=== PATIENT | female | born 1940 | race Two or more races ===

== ENCOUNTER → 2018-01-31 | Outpatient (CLI) | payer OTHER ==
[~2018-01-31] MED LIST: ASA81 MG PO; FOLIC ACID1 MG PO; JAKAFI20 MG PO; KIONEX; METROPOLOL; NABUMETONE500 MG PO; OSTERA TABLET1 EACH PO; PERCOCET 5/3251 TAB PO; ZOCOR20 MG PO; ZYLOPRIM100 M1 PO; [UNRECOGNIZED DRUG - OTHER]; [UNRECOGNIZED DRUG - OTHER]
== END | disposition home or self-care (01) ==
LOC: LAB 06:42
DX: I11.9 Hypertensive heart disease without heart failure (principal)

== ENCOUNTER → 2018-12-20 | Outpatient (CLI) | payer OTHER | END | disposition home or self-care (01) | LOC: NUCLEAR 07:00 | DX: I20.9 Angina pectoris, unspecified (principal) | CPT/HCPCS: 78452; 93017; A9500; J0153 ==

== ENCOUNTER 2019-02-15 09:51 | Outpatient (CLI) | payer OTHER | END 2019-02-15 10:02 | disposition home or self-care (01) | LOC: MRI 09:51 | DX: I67.89 Other cerebrovascular disease (principal); I67.81 Acute cerebrovascular insufficiency | CPT/HCPCS: 70551 ==

== ENCOUNTER 2019-12-27 17:49 | Inpatient (IN) | payer OTHER ==
[~2019-12-27] VITALS: Ht 157.5 cm; Wt 77.0 kg
[~2019-12-27 17:49] MED LIST changes: -KIONEX
[2019-12-27] MEDS ORDERED: ATORVASTATIN CA20 MG (17:59)
[2019-12-27] MEDS ORDERED: HYDREA500 M1 (18:01)
[2019-12-27] MEDS ORDERED: DOXAZOSIN MESYLA2 MG (18:02)
[2020-01-01] MEDS ORDERED: TOPROL XL50 MG PO (14:03)
[2020-01-01] MEDS ORDERED: SODIUM POLYSTY454 GM (14:04)
[2020-01-01] MEDS ORDERED: KIONEX (14:05)
[2020-01-12] MEDS ORDERED: NORVASC2.5 M1 PO (16:15)
[2020-01-12] MEDS ORDERED: ATORVASTATIN CA20 MG PO (16:16)
[2020-01-12] MEDS ORDERED: DOXAZOSIN MESYLA2 MG PO (16:17)
[2020-01-12] MEDS ORDERED: TOPROL XL50 MG PO (16:18)
[2020-01-12] MEDS ORDERED: LEVOTHYROXINE100 MCG PO (16:19)
[2020-01-12] MEDS ORDERED: ZYLOPRIM100 M1 PO (16:19)
[2020-01-12] MEDS ORDERED: PROTEINEX-18 LI30 ML PO (16:20)
== END 2020-01-12 17:38 | disposition home or self-care (01) | DRG 809 ==
LOC: ER 17:49 → SURH 18:47 → SURG 18:47 → SEC-K 20:53 → SURG 21:09 → SURH 12-28 15:26
PROVIDERS: ADMIT Internal Medicine Hematology & Oncology
PROC: 8E0ZXY6 Isolation (ICD-10-PCS; principal; 2019-12-27)
PROC: 4A12X4Z Monitoring of Cardiac Electrical Activity, External Approach (ICD-10-PCS; 2019-12-28)
PROC: 07DR3ZX Extraction of Iliac Bone Marrow, Percutaneous Approach, Diagnostic (ICD-10-PCS; 2020-01-04)
PROC: 3E0F7GC Introduction of Other Therapeutic Substance into Respiratory Tract, Via Natural or Artificial Opening (ICD-10-PCS; 2020-01-04)
DX: D61.818 Other pancytopenia (principal); E46 Unspecified protein-calorie malnutrition; J45.901 Unspecified asthma with (acute) exacerbation; D80.8 Other immunodeficiencies with predominantly antibody defects; I12.9 Hypertensive chronic kidney disease with stage 1 through stage 4 chronic kidney disease, or unspecified chronic kidney disease; N18.3 Chronic kidney disease, stage 3 (moderate); D64.9 Anemia, unspecified; Z53.1 Procedure and treatment not carried out because of patient's decision for reasons of belief and group pressure; D47.3 Essential (hemorrhagic) thrombocythemia; I95.1 Orthostatic hypotension; M17.12 Unilateral primary osteoarthritis, left knee; E03.9 Hypothyroidism, unspecified

== ENCOUNTER 2021-08-16 11:39 | Emergency (ER) | payer OTHER ==
[~2021-08-16] VITALS: Ht 162.6 cm; Wt 86.2 kg
[~2021-08-16 11:39] MED LIST changes: +ATORVASTATIN CA20 MG; +ATORVASTATIN CA20 MG PO; +DOXAZOSIN MESYLA2 MG; +DOXAZOSIN MESYLA2 MG PO; +HYDREA500 M1; +KIONEX; +LEVOTHYROXINE100 MCG PO; +NORVASC2.5 M1 PO; +PROTEINEX-18 LI30 ML PO; +SODIUM POLYSTY454 GM; +TOPROL XL50 MG PO
[2021-08-16] MEDS ORDERED: SYNTHROID88 MCG PO (11:54)
[2021-08-16] MEDS ORDERED: NIFEDIPINE20 MG PO (11:55)
[2021-08-16] MEDS ORDERED: ZANAFLEX4 M1 PO (11:56)
[2021-08-16] MEDS ORDERED: DANAZOL100 MG PO (11:56)
[2021-08-16] MEDS ORDERED: LASIX20 MG PO (11:56)
[2021-08-16] MEDS ORDERED: AZITHROMYCIN250 MG (11:57)
[2021-08-16] MEDS ORDERED: MEDROLPACK PO (11:57)
[2021-08-16] MEDS ORDERED: TUSSIN DM CLEA118 M1 (11:58)
== END 2021-08-16 17:07 | disposition home or self-care (01) ==
LOC: ER 11:39
DX: J45.998 Other asthma (principal); D64.9 Anemia, unspecified; E11.9 Type 2 diabetes mellitus without complications; I10 Essential (primary) hypertension; Z11.52 Encounter for screening for COVID-19

== ENCOUNTER 2021-09-10 16:28 | Emergency (ER) | payer OTHER ==
[~2021-09-10] VITALS: Ht 162.6 cm; Wt 82.1 kg
[~2021-09-10 16:28] MED LIST changes: +AZITHROMYCIN250 MG; +DANAZOL100 MG PO; +LASIX20 MG PO; +MEDROLPACK PO; +NIFEDIPINE20 MG PO; +SYNTHROID88 MCG PO; +TUSSIN DM CLEA118 M1; +ZANAFLEX4 M1 PO
== END 2021-09-10 19:19 | disposition home or self-care (01) ==
LOC: ER 16:28
DX: R06.02 Shortness of breath (principal); Z11.52 Encounter for screening for COVID-19

== ENCOUNTER 2022-09-25 10:48 | Emergency (ER) | payer OTHER ==
[~2022-09-25] VITALS: Ht 162.6 cm; Wt 75.3 kg
== END 2022-09-25 15:18 | disposition home or self-care (01) ==
LOC: ER 10:48
DX: J45.909 Unspecified asthma, uncomplicated (principal); Z88.8 Allergy status to other drugs, medicaments and biological substances; Z20.822 Contact with and (suspected) exposure to COVID-19

== ENCOUNTER 2024-04-30 12:01 | Emergency (ER) | payer OTHER ==
[~2024-04-30] VITALS: Ht 162.6 cm; Wt 66.7 kg
[~2024-04-30 12:01] MED LIST changes: +COZAAR50 MG PO; +DEXAMETHASONE4 MG PO; +FUROSEMIDE20 MG PO; +LEVOTHYROXINE88 MCG PO
[2024-04-30] MEDS ORDERED: LEVALBUTEROL HCL 1.25 MG/3 ML SOLUTION IH STA (13:33)
[2024-04-30] MEDS ORDERED: IPRATROPIUM BROMIDE 0.5 MG/2.5 ML AMPUL.NEB IH STA (13:34)
[2024-04-30] MEDS ORDERED: HYDROCODONE/CHLORPHEN P-STIREX 5 ML ML PO STA (13:34)
[2024-04-30] MEDS ORDERED: BUDESONIDE 0.5 MG/2 ML AMPUL.NEB IH STA (13:34)
[2024-04-30] MEDS ORDERED: METHYLPREDNISOLONE SOD SUCC 125 MG VIAL IV STA (13:35)
[2024-04-30] MEDS ORDERED: MAGNESIUM SULFATE IN WATER 4 GM/100 ML PIGGYBACK IV STA (13:38)
[2024-04-30] MEDS ORDERED: METHYLPREDNISOLONE SOD SUCC 40 MG VIAL ONE (14:28)
[2024-04-30 14:39] LABS: HEMATOCRIT 29.4 % (36.0-45.00); HEMOGLOBIN 9.7 g/dL (12.0-15.00); MEAN CORPUSCULAR HEMOGLOBIN 30.3 pg (27.00-32.0); MEAN CORPUSCULAR HGB CONC 32.9 g/dl (32.0-36.0); PLATELET COUNT 793 K/uL (150-450); RED BLOOD COUNT 3.19 M/uL (4.00-6.00); RED CELL DISTRIBUTION WIDTH 16.9 % (11.5-14.5)
[2024-04-30 14:53] LABS: CALCIUM 8.8 mg/dL (8.5-10.1); CREATININE SERUM 2.24 mg/dL (0.55-1.02); GFR 20.78; POTASSIUM 5.57 mEq/L (3.5-5.1)
[2024-04-30] MEDS ORDERED: MAGNESIUM SULFATE 50% 5,000 MG/10 ML VIAL ONE (15:13)
[2024-04-30] MEDS ORDERED: IPRATROPIUM BROMIDE 0.5 MG/2.5 ML AMPUL.NEB IH ONE (16:07)
[2024-04-30] MEDS ORDERED: LEVALBUTEROL HCL 0.63 MG/3 ML SOLUTION IH ONE (16:07)
[2024-04-30] MEDS ORDERED: BUDESONIDE 0.5 MG/2 ML AMPUL.NEB IH ONE (16:07)
== END 2024-04-30 18:14 | disposition home or self-care (01) ==
LOC: ER 12:01
PROVIDERS: General Practice
DX: J45.998 Other asthma (principal); E11.9 Type 2 diabetes mellitus without complications; Z88.8 Allergy status to other drugs, medicaments and biological substances; E78.00 Pure hypercholesterolemia, unspecified; I10 Essential (primary) hypertension; Z20.822 Contact with and (suspected) exposure to COVID-19; I51.7 Cardiomegaly; J90 Pleural effusion, not elsewhere classified
CPT/HCPCS: 36415; 71045; 94640; 99284; J3475; J3490

== ENCOUNTER 2024-06-01 20:56 | Inpatient (IN) | payer OTHER ==
[~2024-06-01] VITALS: Ht 152.4 cm; Wt 82.6 kg
[2024-06-01] MEDS ORDERED: 0.9 % SODIUM CHLORIDE 1,000 ML IV STA (22:39)
[2024-06-01] MEDS ORDERED: FUROsemide 20 MG/2 ML VIAL IV ONE (22:45)
[2024-06-01] MEDS ORDERED: NITROGLYCERIN IN 5 % DEXTROSE 50 MG/250 ML BOTTLE IV SCH (23:00)
[2024-06-01 23:11] LABS: HEMATOCRIT 29.3 % (36.0-45.00); HEMOGLOBIN 9.6 g/dL (12.0-15.00); MEAN CELL VOLUME 91.1 fL (80.00-100.00); MEAN CORPUSCULAR HGB CONC 32.9 g/dl (32.0-36.0); PLATELET COUNT 366 K/uL (150-450); RED BLOOD COUNT 3.21 M/uL (4.00-6.00); RED CELL DISTRIBUTION WIDTH 16.7 % (11.5-14.5)
[2024-06-01 23:34] LABS: CALCIUM 8.4 mg/dL (8.5-10.1); CREATININE SERUM 2.4 mg/dL (0.55-1.02); GFR 19.19; POTASSIUM 5.73 mEq/L (3.5-5.1)
[2024-06-01 23:35] LABS: INR 1.31; PARTIAL THROMBOPLASTIN TIME 26.4 SECONDS (22.0-34.0)
[2024-06-02] VITALS (20 sets, daily range): BP systolic 150–186; BP diastolic 69–92; O2SAT 98–200
[2024-06-02] MEDS ORDERED: FUROsemide 20 MG/2 ML VIAL IV SCH
[2024-06-02] MEDS ORDERED: ACETAMINOPHEN 500 MG GEL..CAP PO PRN
[2024-06-02] MEDS ORDERED: FAMOTIDINE/PF 20 MG in 0.9 % SODIUM CHLORIDE 8 ML IV PUSH SCH
[2024-06-02 00:37] LABS: ABG PH 7.408 (7.35-7.45); ABG PO2 63.6 mmHg (80-100); ABG pCO2 35.7 mmHg (35-45); Tco2 23.1 mmol/l; allen test SATISFACTORY; puncture site RADIAL LEFT
[2024-06-02 00:38] LABS: o2 21 %
[2024-06-02] MEDS ORDERED: IPRATROPIUM BROMIDE 0.5 MG/2.5 ML AMPUL.NEB IH SCH (01:00)
[2024-06-02 01:15] LABS: URINE APPEARANCE Clear; URINE BILIRRUBIN Negative (NEGATIVE); URINE BLOOD Negative; URINE COLOR Yellow; URINE GLUCOSE Negative (NEGATIVE); URINE KETONE Trace (NEGATIVE); URINE LEUKOCYTE Negative; URINE NITRATE Negative
[2024-06-02 01:18] LABS: URINE BACTERIA 25.1 uL (0.0-1933); URINE CAST 2.13 uL (0.0-1.40); URINE EPITHELIAL CELLS 13.1 uL (0.0-38.8); URINE WBC 2.9 uL (0.0-23.2)
[2024-06-02 01:19] LABS: URINE PROTEIN 100 (NEGATIVE); URINE RBC 1.2 uL (0.0-20.8)
[2024-06-02] MEDS ORDERED: LEVOTHYROXINE SODIUM 88 MCG TABLET PO SCH (06:00)
[2024-06-02 06:56] LABS: CHOL HDL RATIO 1.5 (0-5.0); MAGNESIUM 2.3 mg/dL (1.8-2.4); PHOSPHOROUS 4.7 mg/dL (2.5-4.9)
[2024-06-02] MEDS ORDERED: ENOXAPARIN SODIUM 40 MG/0.4 ML SYRINGE SUBCUTANEO SCH (09:00)
[2024-06-02] MEDS ORDERED: hydrALAZINE HCL 25 MG TABLET PO SCH (09:00)
[2024-06-02] MEDS ORDERED: BUMETANIDE 1 MG TABLET PO SCH (09:00)
[2024-06-02] MEDS ORDERED: METOPROLOL SUCCINATE 50 MG TAB.SR.24H PO SCH (09:00)
[2024-06-02] MEDS ORDERED: ATORVASTATIN CALCIUM 20 MG TABLET PO SCH (09:00)
[2024-06-02] MEDS ORDERED: PIPERACILLIN/TAZOBACTAM SODIUM 2.25 GM VIAL IV SCH (10:21)
[2024-06-02] MEDS ORDERED: SODIUM POLYSTYRENE SULFONATE 15 G/4 TSP TSP PO SCH ×2 (13:00)
[2024-06-02] MEDS ORDERED: EPOETIN ALFA-EPBX 10,000 UNIT/ML VIAL (Retacrit) SUBCUTANEO SCH (17:00)
[2024-06-02] MEDS ORDERED: CEFTRIAXONE SODIUM 2,000 MG VIAL IV SCH (17:00)
[2024-06-02] MEDS ORDERED: hydrALAZINE HCL 25 MG TABLET PO STA (20:12)
[2024-06-02] MEDS ORDERED: NITROGLYCERIN IN 5 % DEXTROSE 250 ML IV SCH (23:00)
[2024-06-03] VITALS (19 sets, daily range): BP systolic 109–173; BP diastolic 60–94; O2SAT 98–100
[2024-06-03] MEDS ORDERED: hydrALAZINE HCL 50 MG TABLET PO SCH
[2024-06-03] MEDS ORDERED: NITROGLYCERIN IN 5 % DEXTROSE 250 ML IV SCH (08:30)
[2024-06-03 08:31] LABS: ALBUMIN 2.8 gm/dL (3.4-5.0); BILIRUBIN TOTAL 0.45 mg/dL (0.3-1.2); CREATININE SERUM 2.21 mg/dL (0.55-1.02); GFR 21.1; GLOBULINA 2.9 G/DL (2.4-3.5); POTASSIUM 4.58 mEq/L (3.5-5.1); TOTAL PROTEIN 5.7 gm/dL (6.4-8.2)
[2024-06-03] MEDS ORDERED: ENOXAPARIN SODIUM 30 MG/0.3 ML SYRINGE SUBCUTANEO SCH (09:00)
[2024-06-03] MEDS ORDERED: METOLAZONE 5 MG TABLET PO SCH (09:00)
[2024-06-03] MEDS ORDERED: VITAMIN B COMPLEX 1 EACH PO SCH (09:00)
[2024-06-03] MEDS ORDERED: BUMETANIDE 1 MG TABLET PO SCH ×2 (09:00)
[2024-06-03] MEDS ORDERED: hydrALAZINE HCL 50 MG,hydrALAZINE HCL 25 MG PO SCH (18:00)
[2024-06-03] MEDS ORDERED: AMLODIPINE BESYLATE 10 MG TABLET PO SCH (21:00)
[2024-06-04] VITALS (14 sets, daily range): BP systolic 111–176; BP diastolic 54–94; O2SAT 91–100
[2024-06-04] MEDS ORDERED: DOCUSATE SODIUM 100MG CAP PO SCH (09:00)
[2024-06-04] MEDS ORDERED: BUMETANIDE 2.5 MG/10 ML VIAL IV SCH (09:00)
[2024-06-04] MEDS ORDERED: BUMETANIDE 1 MG TABLET PO SCH (09:00)
[2024-06-05] VITALS (8 sets, daily range): BP systolic 143–155; BP diastolic 59–70; O2SAT 97–100
[2024-06-05 06:55] LABS: HEMATOCRIT 28.7 % (36.0-45.00); HEMOGLOBIN 9.5 g/dL (12.0-15.00); MEAN CELL VOLUME 90.9 fL (80.00-100.00); MEAN CORPUSCULAR HEMOGLOBIN 30.1 pg (27.00-32.0); MEAN CORPUSCULAR HGB CONC 33.1 g/dl (32.0-36.0); PLATELET COUNT 516 K/uL (150-450); RED BLOOD COUNT 3.16 M/uL (4.00-6.00); RED CELL DISTRIBUTION WIDTH 16.5 % (11.5-14.5)
[2024-06-05 07:20] LABS: ALBUMIN 2.6 gm/dL (3.4-5.0); BILIRUBIN TOTAL 0.27 mg/dL (0.3-1.2); CREATININE SERUM 2.24 mg/dL (0.55-1.02); GFR 20.78; POTASSIUM 4.4 mEq/L (3.5-5.1); TOTAL PROTEIN 5.6 gm/dL (6.4-8.2)
[2024-06-05] MEDS ORDERED: ISOSORBIDE MONONITRATE 30 MG TABLET PO SCH (09:00)
[2024-06-05] MEDS ORDERED: DOXAZOSIN MESYLATE 2 MG TABLET PO SCH (09:00)
[2024-06-05 09:38] LABS: ABG PH 7.456 (7.35-7.45); ABG PO2 94.7 mmHg (80-100); ABG pCO2 37.5 mmHg (35-45); BASE EXCESS 2.1 mmol/l; BICARBONATE 25.9 mmol/l (23-25); SaO2 97.8 %; o2 21 %; puncture site RADIAL RIGHT
[2024-06-05 09:39] LABS: allen test SATISFACTORY
[2024-06-06] VITALS (8 sets, daily range): BP systolic 127–146; BP diastolic 63–65; O2SAT 96–100
[2024-06-06 07:54] LABS: ALBUMIN 2.7 gm/dL (3.4-5.0); CALCIUM 8.4 mg/dL (8.5-10.1); CREATININE SERUM 2.32 mg/dL (0.55-1.02); GFR 19.95; PHOSPHOROUS 4.7 mg/dL (2.5-4.9); POTASSIUM 4.39 mEq/L (3.5-5.1)
[2024-06-06] MEDS ORDERED: hydrALAZINE HCL 50 MG TABLET PO SCH (12:00)
[2024-06-06] MEDS ORDERED: METOLAZONE 5 MG TABLET PO SCH (12:00)
[2024-06-06] MEDS ORDERED: DOXAZOSIN MESYLATE 4 MG TABLET PO SCH (17:00)
[2024-06-06] MEDS ORDERED: BUMETANIDE 2.5 MG/10 ML VIAL IV SCH (21:00)
[2024-06-07] VITALS (7 sets, daily range): BP systolic 121–153; BP diastolic 61–70; O2SAT 98–100
[2024-06-08 01:32] VITALS: BP 129/58; O2SAT 100
[2024-06-08 07:10] LABS: HEMATOCRIT 27.8 % (36.0-45.00); HEMOGLOBIN 9.3 g/dL (12.0-15.00); MEAN CELL VOLUME 90.7 fL (80.00-100.00); MEAN CORPUSCULAR HEMOGLOBIN 30.3 pg (27.00-32.0); MEAN CORPUSCULAR HGB CONC 33.4 g/dl (32.0-36.0); RED BLOOD COUNT 3.06 M/uL (4.00-6.00); RED CELL DISTRIBUTION WIDTH 16.6 % (11.5-14.5)
[2024-06-08 07:14] LABS: ALBUMIN 2.4 gm/dL (3.4-5.0); BILIRUBIN TOTAL 0.24 mg/dL (0.3-1.2); CALCIUM 8.2 mg/dL (8.5-10.1); CREATININE SERUM 2.53 mg/dL (0.55-1.02); GFR 18.05; GLOBULINA 2.6 G/DL (2.4-3.5); POTASSIUM 5.4 mEq/L (3.5-5.1)
[2024-06-08 07:28] LABS: PLATELET COUNT 1074 K/uL (150-450)
[2024-06-08 08:31] VITALS: BP 151/62; O2SAT 98
[2024-06-08] MEDS ORDERED: BUMETANIDE 2.5 MG/10 ML VIAL IV SCH ×2 (09:00→21:00)
[2024-06-08] MEDS ORDERED: HYDROXYUREA 500 MG CAP PO SCH (17:00)
[2024-06-08 17:59] VITALS: BP 122/54; O2SAT 100
[2024-06-09 00:58] VITALS: BP 146/61; O2SAT 96
[2024-06-09 09:05] VITALS: BP 154/75; O2SAT 97
[2024-06-09] MEDS ORDERED: AMINO ACIDS/PROTEIN HYDROLYS 30 ML BLIST.PACK PO SCH (17:00)
[2024-06-09 17:38] VITALS: BP 148/63; O2SAT 97
[2024-06-10 00:37] VITALS: BP 158/68
[2024-06-10 08:27] LABS: HEMATOCRIT 29.1 % (36.0-45.00); HEMOGLOBIN 9.9 g/dL (12.0-15.00); MEAN CELL VOLUME 90.6 fL (80.00-100.00); MEAN CORPUSCULAR HEMOGLOBIN 30.7 pg (27.00-32.0); MEAN CORPUSCULAR HGB CONC 33.9 g/dl (32.0-36.0); RED BLOOD COUNT 3.22 M/uL (4.00-6.00); RED CELL DISTRIBUTION WIDTH 16.3 % (11.5-14.5)
[2024-06-10 08:31] LABS: PLATELET COUNT 1316 K/uL (150-450)
[2024-06-10 08:33] LABS: ALBUMIN 2.6 gm/dL (3.4-5.0); CALCIUM 8.7 mg/dL (8.5-10.1); CREATININE SERUM 2.36 mg/dL (0.55-1.02); GFR 19.56; PHOSPHOROUS 4.1 mg/dL (2.5-4.9); POTASSIUM 5.36 mEq/L (3.5-5.1)
[2024-06-10 08:55] VITALS: BP 149/65; O2SAT 99
[2024-06-11] MEDS ORDERED: BUMETANIDE 2.5 MG/10 ML VIAL IV SCH (09:00)
== END 2024-06-10 14:56 | disposition home or self-care (01) | DRG 292 ==
LOC: ER 20:57 → ICU-2 23:57 → ICU 06-02 19:13 → MEDJ 06-04 10:53
PROVIDERS: Emergency Medicine; General Practice; Internal Medicine; Internal Medicine Nephrology; ADMIT Internal Medicine; ATTEND Internal Medicine
PROC: 4A12X4Z Monitoring of Cardiac Electrical Activity, External Approach (ICD-10-PCS; 2024-06-01)
PROC: B246ZZZ Ultrasonography of Right and Left Heart (ICD-10-PCS; principal; 2024-06-02)
PROC: 3E0F7GC Introduction of Other Therapeutic Substance into Respiratory Tract, Via Natural or Artificial Opening (ICD-10-PCS; 2024-06-02)
PROC: BW21ZZZ Computerized Tomography (CT Scan) of Abdomen and Pelvis (ICD-10-PCS; 2024-06-06)
DX: I50.23 Acute on chronic systolic (congestive) heart failure (principal); D47.1 Chronic myeloproliferative disease; I13.0 Hypertensive heart and chronic kidney disease with heart failure and stage 1 through stage 4 chronic kidney disease, or unspecified chronic kidney disease; N17.9 Acute kidney failure, unspecified; E87.5 Hyperkalemia; E87.70 Fluid overload, unspecified; N18.30 Chronic kidney disease, stage 3 unspecified; D63.1 Anemia in chronic kidney disease; M17.0 Bilateral primary osteoarthritis of knee; E03.9 Hypothyroidism, unspecified; R09.02 Hypoxemia; R60.1 Generalized edema; Z53.1 Procedure and treatment not carried out because of patient's decision for reasons of belief and group pressure

== ENCOUNTER 2024-07-03 19:36 | Inpatient (IN) | payer OTHER ==
[~2024-07-03] VITALS: Ht 162.6 cm; Wt 68.9 kg
--- NOTE | 2024-07-03 20:12 | NUR ---
SE RECIBE PACIENTE ALERTA Y ORIENTADA X3 EN COMPANIA DE FAMILIAR LA CUAL REFIERE QUE EN EL AMOR DE [place] PACIENTE PRESENTO MAREOS Y SE CHUNG MANTENIDO CON DOLOR ABDOMINAL DESDE BONILLA.
[2024-07-03] MEDS ORDERED: FAMOTIDINE/PF 20 MG in 0.9 % SODIUM CHLORIDE 8 ML IV PUSH STA (20:47)
[2024-07-03] MEDS ORDERED: ONDANSETRON HCL 2 MG/ML VIAL IV ONE (21:00)
[2024-07-03] MEDS ORDERED: KETOROLAC TROMETHAMINE 30 MG VIAL IM ONE (21:00)
--- NOTE | 2024-07-03 21:03 | NUR ---
MS MATA ORIENTA PTE SOBRE TX MEDICO EL CUAL REFIERE ENTENDER.SE LE EXTRAEN MUESTRAS BAJO MEDIDAS ASEPTICAS,SE CANALIZA Y SE ADMINISTRA MEDICAMENTO,SE NOTIFICA CT PENDIENTE.
[2024-07-03 21:40] LABS: HEMATOCRIT 32.3 % (36.0-45.00); HEMOGLOBIN 10.5 g/dL (12.0-15.00); MEAN CELL VOLUME 88.2 fL (80.00-100.00); MEAN CORPUSCULAR HEMOGLOBIN 28.7 pg (27.00-32.0); MEAN CORPUSCULAR HGB CONC 32.6 g/dl (32.0-36.0); PLATELET COUNT 324 K/uL (150-450); RED BLOOD COUNT 3.66 M/uL (4.00-6.00)
[2024-07-03 21:59] LABS: ALBUMIN 3.5 gm/dL (3.4-5.0); BILIRUBIN TOTAL 0.34 mg/dL (0.3-1.2); BILIRUBIN,CONJUGATED 0.17 mg/dL (0.0-0.2); BILIRUBIN,UNCONJUGATED 0.17 mg/dL (0.0-0.6); CALCIUM 8.9 mg/dL (8.5-10.1); CREATININE SERUM 3.83 mg/dL (0.55-1.02); GFR 11.19; GLOBULINA 4.6 G/DL (2.4-3.5); POTASSIUM 4.32 mEq/L (3.5-5.1); TOTAL PROTEIN 8.1 gm/dL (6.4-8.2)
[2024-07-04] VITALS (7 sets, daily range): BP systolic 138–177; BP diastolic 73–85; O2SAT 90–98
[2024-07-04] MEDS ORDERED: ACETAMINOPHEN 500 MG GEL..CAP PO PRN (01:15)
[2024-07-04] MEDS ORDERED: 0.9 % SODIUM CHLORIDE 1,000 ML IV SCH (01:15)
[2024-07-04] MEDS ORDERED: MORPHINE SULFATE 2 MG/ML SYRINGE IV STA (04:55)
[2024-07-04] MEDS ORDERED: LEVOTHYROXINE SODIUM 88 MCG TABLET PO SCH (06:00)
[2024-07-04 06:42] LABS: INR 1.26; PARTIAL THROMBOPLASTIN TIME 21.8 SECONDS (22.0-34.0); PROTHROMBIN TIME 13.5 SECONDS (9.0-11.5)
[2024-07-04 07:06] LABS: MAGNESIUM 2.3 mg/dL (1.8-2.4)
[2024-07-04] MEDS ORDERED: FUROsemide 20 MG/2 ML VIAL IV SCH (09:00)
[2024-07-04] MEDS ORDERED: ATORVASTATIN CALCIUM 20 MG TABLET PO SCH (09:00)
[2024-07-04] MEDS ORDERED: METOPROLOL SUCCINATE 50 MG TAB.SR.24H PO SCH (09:00)
[2024-07-04] MEDS ORDERED: FAMOTIDINE/PF 20 MG in 0.9 % SODIUM CHLORIDE 8 ML IV PUSH SCH (09:00)
[2024-07-04] MEDS ORDERED: ENOXAPARIN SODIUM 30 MG/0.3 ML SYRINGE SUBCUTANEO SCH (09:00)
[2024-07-04 09:03] LABS: PH,URINE 6.5 (5.0-8.0); URINE APPEARANCE Clear; URINE BILIRRUBIN Negative (NEGATIVE); URINE BLOOD Negative; URINE COLOR Yellow; URINE GLUCOSE Negative (NEGATIVE); URINE KETONE Negative (NEGATIVE); URINE LEUKOCYTE Negative; URINE NITRATE Negative; URINE PROTEIN Trace (NEGATIVE); URINE UROBILINOGEN 0.2 E.U./dl
[2024-07-04 09:07] LABS: URINE BACTERIA 391.6 uL (0.0-1933); URINE CAST 1.52 uL (0.0-1.40); URINE EPITHELIAL CELLS 9.7 uL (0.0-38.8); URINE RBC 2.4 uL (0.0-20.8); URINE WBC 10.9 uL (0.0-23.2)
[2024-07-04] MEDS ORDERED: hydrALAZINE HCL 20 MG VIAL IV PRN (11:15)
[2024-07-04] MEDS ORDERED: MULTIVIT INFUSN,ADULT 4,VIT K 10 ML VIAL IV NR (12:00)
[2024-07-04] MEDS ORDERED: DOXAZOSIN MESYLATE 2 MG TABLET PO SCH (17:00)
[2024-07-05] VITALS (7 sets, daily range): BP systolic 132–178; BP diastolic 66–85; O2SAT 96–99
[2024-07-05 08:18] LABS: CALCIUM 8.6 mg/dL (8.5-10.1); CREATININE SERUM 3.58 mg/dL (0.55-1.02); GFR 12.09; POTASSIUM 4.58 mEq/L (3.5-5.1)
[2024-07-05] MEDS ORDERED: MULTIVIT INFUSN,ADULT 4,VIT K 10 ML VIAL IV SCH (09:00)
[2024-07-05] MEDS ORDERED: DOXAZOSIN MESYLATE 2 MG TABLET PO SCH (09:00)
[2024-07-05] MEDS ORDERED: FUROsemide 20 MG TABLET PO NR (14:00)
[2024-07-05] MEDS ORDERED: hydrALAZINE HCL 25 MG TABLET PO SCH (17:00)
[2024-07-06] VITALS (8 sets, daily range): BP systolic 90–148; BP diastolic 53–70; O2SAT 88–100
[2024-07-06 07:13] LABS: CALCIUM 8.3 mg/dL (8.5-10.1); CREATININE SERUM 3.63 mg/dL (0.55-1.02); GFR 11.9; PHOSPHOROUS 4.8 mg/dL (2.5-4.9); POTASSIUM 4.72 mEq/L (3.5-5.1)
[2024-07-06] MEDS ORDERED: FUROsemide 20 MG TABLET PO SCH (09:00)
[2024-07-07] VITALS (7 sets, daily range): BP systolic 120–131; BP diastolic 61–72; O2SAT 90–100
[2024-07-07 07:05] LABS: ALBUMIN 2.9 gm/dL (3.4-5.0); CALCIUM 8.4 mg/dL (8.5-10.1); CREATININE SERUM 3.57 mg/dL (0.55-1.02); GFR 12.13; PHOSPHOROUS 4.2 mg/dL (2.5-4.9); POTASSIUM 5.13 mEq/L (3.5-5.1)
[2024-07-08] VITALS (7 sets, daily range): BP systolic 118–153; BP diastolic 68–78; O2SAT 94–100
[2024-07-08] MEDS ORDERED: MULTIVIT INFUSN,ADULT 4,VIT K 10 ML VIAL IV SCH (09:00)
[2024-07-09] VITALS (7 sets, daily range): BP systolic 125–157; BP diastolic 54–78; O2SAT 88–100
[2024-07-09 08:13] LABS: CREATININE SERUM 3.03 mg/dL (0.55-1.02); GFR 14.66; POTASSIUM 5.68 mEq/L (3.5-5.1)
[2024-07-09] MEDS ORDERED: SODIUM POLYSTYRENE SULFONATE 30G/8 TSP PO SCH (12:00)
[2024-07-10 05:32] VITALS: O2SAT 98
[2024-07-10 07:23] LABS: CALCIUM 8.1 mg/dL (8.5-10.1); CREATININE SERUM 2.95 mg/dL (0.55-1.02); GFR 15.12; POTASSIUM 4.99 mEq/L (3.5-5.1)
[2024-07-10 08:00] VITALS: BP 145/76; O2SAT 100
[2024-07-10 15:53] VITALS: BP 161/77; O2SAT 100
[2024-07-10 16:33] VITALS: O2SAT 86
[2024-07-10 20:56] VITALS: O2SAT 97
[2024-07-11 00:39] VITALS: BP 150/70; O2SAT 97
[2024-07-11 08:00] VITALS: BP 160/80; O2SAT 99
[2024-07-11 13:39] VITALS: O2SAT 95
[2024-07-11 15:56] VITALS: O2SAT 98
[2024-07-11 16:00] VITALS: BP 164/77; O2SAT 99
[2024-07-11 22:06] VITALS: O2SAT 97
[2024-07-12 00:46] VITALS: BP 124/72; O2SAT 97
[2024-07-12 01:00] VITALS: O2SAT 97
[2024-07-12 05:00] VITALS: O2SAT 98
[2024-07-12 07:11] LABS: HEMATOCRIT 27.1 % (36.0-45.00); MEAN CELL VOLUME 87.4 fL (80.00-100.00); MEAN CORPUSCULAR HEMOGLOBIN 28.9 pg (27.00-32.0); MEAN CORPUSCULAR HGB CONC 33.1 g/dl (32.0-36.0); PLATELET COUNT 933 K/uL (150-450); RED BLOOD COUNT 3.11 M/uL (4.00-6.00); RED CELL DISTRIBUTION WIDTH 17.6 % (11.5-14.5)
[2024-07-12 07:34] LABS: ALBUMIN 3.2 gm/dL (3.4-5.0); BILIRUBIN TOTAL 0.33 mg/dL (0.3-1.2); CALCIUM 8.2 mg/dL (8.5-10.1); CREATININE SERUM 2.26 mg/dL (0.55-1.02); GFR 20.56; GLOBULINA 3.2 G/DL (2.4-3.5); POTASSIUM 4.5 mEq/L (3.5-5.1); TOTAL PROTEIN 6.4 gm/dL (6.4-8.2)
[2024-07-12 08:00] VITALS: BP 141/84; O2SAT 95
== END 2024-07-12 12:06 | disposition home or self-care (01) | DRG 683 ==
LOC: ER 19:38 → SURG 07-04 01:14 → SEC-K 07-04 01:14 → SURG 07-04 10:05
PROVIDERS: General Practice; Internal Medicine; Internal Medicine Nephrology; ADMIT Internal Medicine; ATTEND Internal Medicine
PROC: B020ZZZ Computerized Tomography (CT Scan) of Brain (ICD-10-PCS; principal; 2024-07-03)
PROC: BT43ZZZ Ultrasonography of Bilateral Kidneys (ICD-10-PCS; 2024-07-04)
PROC: B246ZZZ Ultrasonography of Right and Left Heart (ICD-10-PCS; 2024-07-04)
PROC: B345ZZZ Ultrasonography of Bilateral Common Carotid Arteries (ICD-10-PCS; 2024-07-04)
PROC: B348ZZZ Ultrasonography of Bilateral Internal Carotid Arteries (ICD-10-PCS; 2024-07-04)
PROC: 4A12X4Z Monitoring of Cardiac Electrical Activity, External Approach (ICD-10-PCS; 2024-07-04)
DX: N17.9 Acute kidney failure, unspecified (principal); I12.0 Hypertensive chronic kidney disease with stage 5 chronic kidney disease or end stage renal disease; R55 Syncope and collapse; E86.0 Dehydration; E87.5 Hyperkalemia; N18.6 End stage renal disease; D63.1 Anemia in chronic kidney disease; E11.22 Type 2 diabetes mellitus with diabetic chronic kidney disease; E03.9 Hypothyroidism, unspecified; R60.0 Localized edema

== ENCOUNTER 2024-08-09 18:18 | Emergency (ER) | payer OTHER ==
[~2024-08-09] VITALS: Ht 162.6 cm; Wt 74.8 kg
[2024-08-09 18:47] VITALS: BP 185/81; O2SAT 97
[2024-08-09] MEDS ORDERED: AGRYLIN0.5 M1 PO (18:49)
== END 2024-08-09 19:38 | disposition home or self-care (01) ==
LOC: ER 18:20
DX: K64.4 Residual hemorrhoidal skin tags (principal); Z88.8 Allergy status to other drugs, medicaments and biological substances

== ENCOUNTER 2024-08-17 08:27 | Emergency (ER) | payer OTHER ==
[~2024-08-17] VITALS: Ht 152.4 cm; Wt 60.8 kg
[~2024-08-17 08:27] MED LIST changes: +AGRYLIN0.5 M1 PO
[2024-08-17] MEDS ORDERED: FUROsemide 40 MG/4 ML VIAL IV SCH (09:00)
[2024-08-17] MEDS ORDERED: MAGNESIUM SULFATE 50% 1,000 MG/2 ML VIAL IV SCH (09:00)
[2024-08-17] MEDS ORDERED: ASPIRIN 81 MG TAB.CHEW PO ONE (09:00)
[2024-08-17 10:39] LABS: URINE APPEARANCE Clear; URINE BILIRRUBIN Negative (NEGATIVE); URINE BLOOD Negative; URINE COLOR Yellow; URINE GLUCOSE Negative (NEGATIVE); URINE KETONE Negative (NEGATIVE); URINE LEUKOCYTE Negative; URINE NITRATE Negative; URINE PROTEIN Trace (NEGATIVE); URINE UROBILINOGEN 0.2 E.U./dl
[2024-08-17 10:45] LABS: URINE BACTERIA 217.7 uL (0.0-1933); URINE EPITHELIAL CELLS 8.3 uL (0.0-38.8); URINE WBC 6.7 uL (0.0-23.2)
[2024-08-17 10:50] LABS: URINE CAST 0.44 uL (0.0-1.40); URINE RBC 1.1 uL (0.0-20.8)
[2024-08-17 11:16] LABS: HEMATOCRIT 27.4 % (36.0-45.00); MEAN CELL VOLUME 86.4 fL (80.00-100.00); MEAN CORPUSCULAR HEMOGLOBIN 28.4 pg (27.00-32.0); MEAN CORPUSCULAR HGB CONC 32.9 g/dl (32.0-36.0); RED BLOOD COUNT 3.17 M/uL (4.00-6.00); RED CELL DISTRIBUTION WIDTH 20.9 % (11.5-14.5)
[2024-08-17 11:25] LABS: ABG PH 7.412 (7.35-7.45); ABG PO2 81.8 mmHg (80-100); ABG pCO2 37.9 mmHg (35-45); SaO2 96.1 %
[2024-08-17 11:26] LABS: BASE EXCESS -0.7 mmol/l; BICARBONATE 23.5 mmol/l (23-25); Tco2 24.7 mmol/l; allen test SATISFACTORY; o2 32 %; puncture site RADIAL LEFT
[2024-08-17 11:45] LABS: PLATELET COUNT 218 K/uL (150-450)
[2024-08-17 11:46] LABS: CALCIUM 8.2 mg/dL (8.5-10.1); CHOL HDL RATIO 1.5 (0-5.0); CREATININE SERUM 2.01 mg/dL (0.55-1.02); GFR 23.54; MAGNESIUM 2.3 mg/dL (1.8-2.4); POTASSIUM 5.08 mEq/L (3.5-5.1); URIC ACID 10.1 mg/dL (2.5-7.5)
[2024-08-17 11:48] LABS: INR 1.32; PROTHROMBIN TIME 14.1 SECONDS (9.0-11.5)
[2024-08-17 12:32] LABS: DIGOXIN 0.1 ng/ml (0.8-2.0)
== END 2024-08-17 15:45 | disposition home or self-care (01) ==
LOC: ER 08:30
PROVIDERS: Emergency Medicine
DX: I50.9 Heart failure, unspecified (principal); R06.02 Shortness of breath; Z88.8 Allergy status to other drugs, medicaments and biological substances
CPT/HCPCS: 36415; 71045; 82803; 93005; 94760; 96365; 96366; 99283; J1940; J3475

== ENCOUNTER 2024-08-27 14:18 | Emergency (ER) | payer OTHER ==
[~2024-08-27] VITALS: Ht 162.6 cm; Wt 68.5 kg
[2024-08-27] MEDS ORDERED: SYNTHROID112 MCG PO (15:30)
[2024-08-27] MEDS ORDERED: 0.9 % SODIUM CHLORIDE 1,000 ML IV SCH (16:30)
[2024-08-27] MEDS ORDERED: HYOSCYAMINE SULFATE 0.125 MG TAB.SUBL SL ONE (16:30)
[2024-08-27] MEDS ORDERED: ONDANSETRON HCL 2 MG/ML VIAL IV ONE (16:30)
[2024-08-27] MEDS ORDERED: ONDANSETRON HCL 2 MG/ML VIAL ONE (16:32)
[2024-08-27 17:42] LABS: HEMATOCRIT 29.5 % (36.0-45.00); HEMOGLOBIN 9.6 g/dL (12.0-15.00); MEAN CELL VOLUME 89.4 fL (80.00-100.00); MEAN CORPUSCULAR HEMOGLOBIN 29.2 pg (27.00-32.0); MEAN CORPUSCULAR HGB CONC 32.6 g/dl (32.0-36.0); RED CELL DISTRIBUTION WIDTH 21.8 % (11.5-14.5)
[2024-08-27 18:05] LABS: PLATELET COUNT 174 K/uL (150-450)
[2024-08-27 20:08] LABS: CALCIUM 8.3 mg/dL (8.5-10.1); CREATININE SERUM 2.35 mg/dL (0.55-1.02); GFR 19.66; POTASSIUM 5.76 mEq/L (3.5-5.1)
[2024-08-27] MEDS ORDERED: SODIUM POLYSTYRENE SULFONATE 30G/8 TSP PO ONE (22:00)
== END 2024-08-27 22:33 | disposition home or self-care (01) ==
LOC: ER 14:21
PROVIDERS: Emergency Medicine
DX: R19.7 Diarrhea, unspecified (principal); N28.9 Disorder of kidney and ureter, unspecified; D46.Z Other myelodysplastic syndromes; I10 Essential (primary) hypertension; E11.9 Type 2 diabetes mellitus without complications; Z88.8 Allergy status to other drugs, medicaments and biological substances

== ENCOUNTER 2024-09-14 15:33 | Inpatient (IN) | payer OTHER ==
[~2024-09-14] VITALS: Ht 162.6 cm; Wt 68.5 kg
[~2024-09-14 15:33] MED LIST changes: +SYNTHROID112 MCG PO
[2024-09-14] MEDS ORDERED: HYDRALAZINE HCL25 MG PO (16:13)
[2024-09-14] MEDS ORDERED: PEPCID AC20 MG (16:14)
[2024-09-14] MEDS ORDERED: PANTOPRAZOLE SO40 MG PO (16:14)
[2024-09-14] MEDS ORDERED: ZAROXOLYN5 MG PO (16:15)
[2024-09-14] MEDS ORDERED: BUMETANIDE1 MG PO (16:15)
[2024-09-14] MEDS ORDERED: COZAAR50 MG PO (16:16)
[2024-09-14] MEDS ORDERED: DOXAZOSIN MESYLA2 MG PO (16:16)
[2024-09-14] MEDS ORDERED: FAMOTIDINE/PF 20 MG/2 ML VIAL IV ONE (17:15)
[2024-09-14] MEDS ORDERED: 0.9 % SODIUM CHLORIDE 1,000 ML IV ONE (17:15)
[2024-09-14] MEDS ORDERED: levoFLOXacin IN DEXTROSE 5 % 500MG/100ML PIGGYBAG IV ONE ×2 (17:15→17:30)
[2024-09-14] MEDS ORDERED: FAMOTIDINE/PF 20 MG/2 ML VIAL ONE (17:30)
[2024-09-14 18:13] LABS: D DIMER 2.47 MG/L; PARTIAL THROMBOPLASTIN TIME 23.5 SECONDS (22.0-34.0)
[2024-09-14 18:23] LABS: ALBUMIN 3.3 gm/dL (3.4-5.0); BILIRUBIN TOTAL 1.28 mg/dL (0.3-1.2); CALCIUM 8.5 mg/dL (8.5-10.1); CREATININE SERUM 3.14 mg/dL (0.55-1.02); GFR 14.04; POTASSIUM 5.11 mEq/L (3.5-5.1); TOTAL PROTEIN 7.3 gm/dL (6.4-8.2)
[2024-09-14 18:26] LABS: INR 1.64
[2024-09-14 18:36] LABS: HEMATOCRIT 31.4 % (36.0-45.00); HEMOGLOBIN 10.2 g/dL (12.0-15.00); MEAN CELL VOLUME 90.1 fL (80.00-100.00); MEAN CORPUSCULAR HEMOGLOBIN 29.1 pg (27.00-32.0); MEAN CORPUSCULAR HGB CONC 32.3 g/dl (32.0-36.0); RED BLOOD COUNT 3.49 M/uL (4.00-6.00); RED CELL DISTRIBUTION WIDTH 21.8 % (11.5-14.5)
[2024-09-14 18:41] LABS: PLATELET COUNT 325 K/uL (150-450)
[2024-09-14 18:43] LABS: PROTHROMBIN TIME 17.2 SECONDS (9.0-11.5)
[2024-09-14] MEDS ORDERED: FUROsemide 40 MG/4 ML VIAL IV ONE (22:30)
[2024-09-14] MEDS ORDERED: NITROGLYCERIN IN 5 % DEXTROSE 50 MG/250 ML BOTTLE IV ONE (22:30)
[2024-09-14] MEDS ORDERED: NITROGLYCERIN 250 ML IV SCH (22:30)
[2024-09-14] MEDS ORDERED: FUROsemide 40 MG/4 ML VIAL ONE (22:30)
[2024-09-14 23:06] LABS: ABG PH 7.397 (7.35-7.45); ABG PO2 81.8 mmHg (80-100); ABG pCO2 33.9 mmHg (35-45); BASE EXCESS -3.6 mmol/l; BICARBONATE 20.4 mmol/l (23-25); SaO2 95.8 %; Tco2 21.4 mmol/l
[2024-09-15] VITALS (21 sets, daily range): BP systolic 132–188; BP diastolic 75–152; O2SAT 94–100
[2024-09-15 00:54] LABS: URINE APPEARANCE Clear; URINE BILIRRUBIN Negative (NEGATIVE); URINE BLOOD Negative; URINE COLOR Dark Yellow; URINE GLUCOSE Negative (NEGATIVE); URINE KETONE Negative (NEGATIVE); URINE LEUKOCYTE Negative; URINE NITRATE Negative
[2024-09-15 00:57] LABS: URINE BACTERIA 1156.5 uL (0.0-1933); URINE EPITHELIAL CELLS 31.1 uL (0.0-38.8); URINE RBC 5.4 uL (0.0-20.8); URINE WBC 11.2 uL (0.0-23.2)
[2024-09-15] MEDS ORDERED: INSULIN LISPRO 1,000 UNIT/10 ML UNITS SUBCUTANEO PRN (01:00)
[2024-09-15] MEDS ORDERED: DEXTROSE 50 % IN WATER 0.5 G/ML DISP.SYRIN IV PRN (01:00)
[2024-09-15] MEDS ORDERED: FUROsemide 20 MG/2 ML VIAL IV SCH (01:00)
[2024-09-15 01:26] LABS: URINE PROTEIN 100 (NEGATIVE)
[2024-09-15] MEDS ORDERED: FUROsemide 20 MG/2 ML VIAL ONE (01:48)
[2024-09-15] MEDS ORDERED: NITROGLYCERIN IN 5 % DEXTROSE 250 ML IV SCH (06:30)
[2024-09-15 07:07] LABS: allen test SATISFACTORY; o2 21 %; puncture site RADIAL RIGHT
[2024-09-15] MEDS ORDERED: BUMETANIDE 2.5 MG/10 ML VIAL IV SCH (09:00)
[2024-09-15] MEDS ORDERED: LOSARTAN POTASSIUM 50 MG TABLET PO SCH (09:00)
[2024-09-15] MEDS ORDERED: DOXAZOSIN MESYLATE 2 MG TABLET PO SCH (09:00)
[2024-09-15] MEDS ORDERED: ENOXAPARIN SODIUM 30 MG/0.3 ML SYRINGE SUBCUTANEO SCH (09:00)
[2024-09-15] MEDS ORDERED: hydrALAZINE HCL 50 MG TABLET PO SCH ×3 (09:00→21:00)
[2024-09-15] MEDS ORDERED: IPRATROPIUM BROMIDE 0.5 MG/2.5 ML AMPUL.NEB IH SCH (09:00)
[2024-09-15] MEDS ORDERED: METOPROLOL SUCCINATE 50 MG TAB.SR.24H PO SCH (09:00)
[2024-09-15] MEDS ORDERED: CHLORHEXIDINE GLUCONATE 120 ML BOTTLE TOP ONE (09:44)
[2024-09-15] MEDS ORDERED: hydrALAZINE HCL 50 MG TABLET PO STA (14:29)
[2024-09-15] MEDS ORDERED: DOXAZOSIN MESYLATE 4 MG TABLET PO SCH (17:00)
[2024-09-15] MEDS ORDERED: ATORVASTATIN CALCIUM 20 MG TABLET PO SCH (17:00)
[2024-09-15] MEDS ORDERED: ACETAMINOPHEN 500 MG GEL..CAP PO ONE (20:45)
[2024-09-16] VITALS (22 sets, daily range): BP systolic 102–186; BP diastolic 51–108; O2SAT 95–100
[2024-09-16 08:19] LABS: CALCIUM 8.7 mg/dL (8.5-10.1); CREATININE SERUM 2.91 mg/dL (0.55-1.02); GFR 15.32; POTASSIUM 5.26 mEq/L (3.5-5.1)
[2024-09-16] MEDS ORDERED: PANTOPRAZOLE SODIUM 40 MG/VIAL VIAL IV SCH (09:00)
[2024-09-16 09:36] LABS: HEMATOCRIT 27.7 % (36.0-45.00); MEAN CELL VOLUME 88.6 fL (80.00-100.00); MEAN CORPUSCULAR HGB CONC 32.4 g/dl (32.0-36.0); PLATELET COUNT 421 K/uL (150-450); RED BLOOD COUNT 3.13 M/uL (4.00-6.00)
[2024-09-16 09:38] LABS: MEAN CORPUSCULAR HEMOGLOBIN 28.7 pg (27.00-32.0)
[2024-09-16] MEDS ORDERED: CLEVIDIPINE BUTYRATE 100 ML IV SCH (11:15)
[2024-09-16] MEDS ORDERED: hydrALAZINE HCL 50 MG TABLET PO SCH (21:00)
[2024-09-16] MEDS ORDERED: ACETAMINOPHEN 500 MG GEL..CAP PO PRN (22:15)
[2024-09-17 04:00] VITALS: BP 148/73; O2SAT 100
[2024-09-17 07:12] VITALS: BP 141/56
[2024-09-17 12:00] VITALS: BP 145/74; O2SAT 100
[2024-09-17 14:19] LABS: CALCIUM 8.4 mg/dL (8.5-10.1); CREATININE SERUM 2.85 mg/dL (0.55-1.02); GFR 15.7; POTASSIUM 4.75 mEq/L (3.5-5.1)
[2024-09-17 15:45] VITALS: BP 145/74
[2024-09-17 20:00] VITALS: BP 151/78; O2SAT 99
[2024-09-18 01:50] VITALS: BP 146/81; O2SAT 97
[2024-09-18] MEDS ORDERED: BUMETANIDE 2.5 MG/10 ML VIAL IV SCH (09:00)
[2024-09-18 09:25] VITALS: BP 157/76; O2SAT 100
[2024-09-18 18:35] VITALS: BP 171/82
[2024-09-19 01:30] VITALS: BP 173/65
[2024-09-19 06:35] LABS: CALCIUM 8.6 mg/dL (8.5-10.1); CREATININE SERUM 2.76 mg/dL (0.55-1.02); GFR 16.29; POTASSIUM 4.73 mEq/L (3.5-5.1)
[2024-09-19 08:36] VITALS: BP 156/72; O2SAT 96
== END 2024-09-19 11:02 | disposition home or self-care (01) | DRG 292 ==
LOC: ER 15:33 → ICU 09-15 00:50 → MEDI 09-17 20:47
PROVIDERS: General Practice; ADMIT Student in an Organized Health Care Education/Training Program; ATTEND Student in an Organized Health Care Education/Training Program
PROC: BB24ZZZ Computerized Tomography (CT Scan) of Bilateral Lungs (ICD-10-PCS; principal; 2024-09-14)
PROC: 3E0F7GC Introduction of Other Therapeutic Substance into Respiratory Tract, Via Natural or Artificial Opening (ICD-10-PCS; 2024-09-15)
PROC: 4A12X4Z Monitoring of Cardiac Electrical Activity, External Approach (ICD-10-PCS; 2024-09-17)
DX: I13.0 Hypertensive heart and chronic kidney disease with heart failure and stage 1 through stage 4 chronic kidney disease, or unspecified chronic kidney disease (principal); N17.8 Other acute kidney failure; I50.9 Heart failure, unspecified; N18.9 Chronic kidney disease, unspecified; I16.0 Hypertensive urgency

== ENCOUNTER 2024-09-27 10:27 | Inpatient (IN) | payer OTHER ==
[~2024-09-27] VITALS: Ht 165.1 cm; Wt 73.0 kg
[~2024-09-27 10:27] MED LIST changes: +BUMETANIDE1 MG PO; +HYDRALAZINE HCL25 MG PO; +PANTOPRAZOLE SO40 MG PO; +PEPCID AC20 MG; +ZAROXOLYN5 MG PO
--- NOTE | 2024-09-27 11:14 | NUR ---
PACIENTE ALERTA Y ORIENTADA X 3. REFIERE DESDE LA MANANA DOLOR DE RICHARD. LA MISMA TIENE REFERIDO MEDICO DE DRA EITAN MATIASAR NEUROLOGA.
[2024-09-27] MEDS ORDERED: LEVALBUTEROL HCL 1.25 MG/3 ML SOLUTION IH STA (13:38)
[2024-09-27] MEDS ORDERED: BUDESONIDE 0.5 MG/2 ML AMPUL.NEB IH STA (13:38)
[2024-09-27] MEDS ORDERED: IPRATROPIUM BROMIDE 0.5 MG/2.5 ML AMPUL.NEB IH STA (13:39)
[2024-09-27] MEDS ORDERED: METHYLPREDNISOLONE SOD SUCC 125 MG VIAL IV STA (13:39)
[2024-09-27] MEDS ORDERED: METHYLPREDNISOLONE SOD SUCC 40 MG VIAL ONE (13:45)
--- NOTE | 2024-09-27 13:51 | NUR ---
PTE EVALUADA POR EL DR. MEDINA. RN C DANIEL CANALIZA, COLECTA MUESTRA DE LAB Y SE ADMINISTRA MEDICAMENTO CATALINO ORDEN MEDICA BAJO MEDIDAS ASEPTICAS. SE NOTIFICA ABG Y TERAPIAS A MS SANJURJO. SE NOTIFICA CT PENDIENTE.
[2024-09-27 14:14] LABS: HEMATOCRIT 28.4 % (36.0-45.00); HEMOGLOBIN 9.6 g/dL (12.0-15.00); MEAN CELL VOLUME 87.9 fL (80.00-100.00); MEAN CORPUSCULAR HEMOGLOBIN 29.8 pg (27.00-32.0); MEAN CORPUSCULAR HGB CONC 33.8 g/dl (32.0-36.0); PLATELET COUNT 521 K/uL (150-450); RED BLOOD COUNT 3.23 M/uL (4.00-6.00)
[2024-09-27] MEDS ORDERED: IPRATROPIUM BROMIDE 0.5 MG/2.5 ML AMPUL.NEB IH ONE ×2 (14:14→21:05)
[2024-09-27] MEDS ORDERED: LEVALBUTEROL HCL 1.25 MG/3 ML SOLUTION IH ONE (14:14)
[2024-09-27] MEDS ORDERED: BUDESONIDE 0.5 MG/2 ML AMPUL.NEB IH ONE (14:14)
[2024-09-27 14:32] LABS: ABG PH 7.404 (7.35-7.45); ABG PO2 108.7 mmHg (80-100); ABG pCO2 55.9 mmHg (35-45)
[2024-09-27 14:33] LABS: BASE EXCESS 7.5 mmol/l; BICARBONATE 34.2 mmol/l (23-25); SaO2 98.3 %; Tco2 35.9 mmol/l; allen test SATISFACTORY; o2 32 %; puncture site RADIAL RIGHT
[2024-09-27 14:39] LABS: ALBUMIN 2.9 gm/dL (3.4-5.0); BILIRUBIN TOTAL 0.65 mg/dL (0.3-1.2); BILIRUBIN,CONJUGATED 0.29 mg/dL (0.0-0.2); BILIRUBIN,UNCONJUGATED 0.36 mg/dL (0.0-0.6); CALCIUM 8.5 mg/dL (8.5-10.1); CREATININE SERUM 1.93 mg/dL (0.55-1.02); GFR 24.61; POTASSIUM 4.88 mEq/L (3.5-5.1); TOTAL PROTEIN 5.7 gm/dL (6.4-8.2)
--- NOTE | 2024-09-27 16:01 | NUR ---
SE MUEVE PTE A AREA DE CRITICO LUEGO DE REALIZARSE CT YA QUE PTE PRESENTA DIFICULTAD RESP CON CANULA NASAL Y USO DE MUSCULOS ACCESORIOS.SE CONECTA A MONITOR CARDIACO Y OXIMETRIA.
[2024-09-27] MEDS ORDERED: METHYLPREDNISOLONE SOD SUCC 125 MG VIAL ONE (16:08)
[2024-09-27] MEDS ORDERED: FUROsemide 20 MG/2 ML VIAL ONE ×2 (16:08→23:25)
[2024-09-27] MEDS ORDERED: PIPERACILLIN/TAZOBACTAM SODIUM 3.375 GM VIAL IV ONE ×2 (16:08→16:30)
[2024-09-27 16:12] LABS: PH,URINE 6.5 (5.0-8.0); URINE APPEARANCE Clear; URINE BILIRRUBIN Negative (NEGATIVE); URINE BLOOD Negative; URINE COLOR Yellow; URINE GLUCOSE Negative (NEGATIVE); URINE KETONE Negative (NEGATIVE); URINE LEUKOCYTE Negative; URINE NITRATE Negative; URINE PROTEIN Negative (NEGATIVE); URINE UROBILINOGEN 0.2 E.U./dl
[2024-09-27 16:14] LABS: URINE BACTERIA 24.4 uL (0.0-1933); URINE EPITHELIAL CELLS 8.1 uL (0.0-38.8)
[2024-09-27 16:18] LABS: URINE CAST 0.58 uL (0.0-1.40); URINE RBC 0.2 uL (0.0-20.8); URINE WBC 0.6 uL (0.0-23.2)
[2024-09-27] MEDS ORDERED: METHYLPREDNISOLONE SOD SUCC 40 MG VIAL IV ONE (16:30)
[2024-09-27] MEDS ORDERED: FUROsemide 20 MG/2 ML VIAL IV ONE (16:30)
[2024-09-27] MEDS ORDERED: NITROGLYCERIN IN 5 % DEXTROSE 250 ML IV SCH (16:51)
[2024-09-27] MEDS ORDERED: NITROGLYCERIN IN 5 % DEXTROSE 50 MG/250 ML BOTTLE IV ONE (16:53)
--- NOTE | 2024-09-27 17:26 | NUR ---
SE RECIBE FEMINA AL AREA DE CRITICO, SE CONECTA A MONITOR CARDIACO Y OXIMETRIA DE PUL[place]. SE COLOCA NON-REBREATHING MASK CATALINO ORDEN MEDICA. SE REALIZA VENOPUNCION X2 RT ARM PATENTES Y EN H/L. SE COLOCA WAGNER BAJO MEDIDAS ASEPTICAS Y ESTERILES. SE ADMINITRA CARLA DE MEDICAMENTOS CATALINO ORDEN Y SE ORIENTA SOBRE LOS MISMOS.
[2024-09-27 17:44] LABS: D DIMER 1.94 MG/L
[2024-09-27 17:52] LABS: INR 1.31; PARTIAL THROMBOPLASTIN TIME 29.7 SECONDS (22.0-34.0)
[2024-09-27 18:00] VITALS: BP 147/85; O2SAT 100
[2024-09-27 18:02] LABS: C-REACTIVE PROTEIN 0.34 MG/DL (0.00-0.29)
[2024-09-27 19:00] VITALS: BP 143/59; O2SAT 100
[2024-09-27] MEDS ORDERED: IPRATROPIUM BROMIDE 0.5 MG/2.5 ML AMPUL.NEB IH SCH (19:53)
[2024-09-27] MEDS ORDERED: ENOXAPARIN SODIUM 40 MG/0.4 ML SYRINGE SUBCUTANEO SCH (19:55)
[2024-09-27 20:00] VITALS: BP 141/59; O2SAT 100
[2024-09-27] MEDS ORDERED: ACETAMINOPHEN 500 MG GEL..CAP PO PRN (20:00)
[2024-09-27] MEDS ORDERED: ENOXAPARIN SODIUM 40 MG/0.4 ML SYRINGE SUBCUTANEO ONE (20:45)
[2024-09-27 21:00] VITALS: BP 161/56; O2SAT 98
[2024-09-27 21:01] LABS: ABG PO2 141.3 mmHg (80-100); BASE EXCESS 6.2 mmol/l; BICARBONATE 32.7 mmol/l (23-25); SaO2 99.2 %; Tco2 34.3 mmol/l
[2024-09-27 22:09] VITALS: BP 161/56; O2SAT 100
[2024-09-27 23:31] LABS: allen test SATISFACTORY; o2 50 %; puncture site RADIAL LEFT
[2024-09-27 23:36] VITALS: BP 153/55; O2SAT 99
[2024-09-28] MEDS ORDERED: FUROsemide 20 MG/2 ML VIAL IV SCH ×2 (01:00→21:00)
[2024-09-28 03:40] VITALS: BP 157/79; O2SAT 100
[2024-09-28] MEDS ORDERED: LEVOTHYROXINE SODIUM 112 MCG TABLET PO SCH (06:00)
[2024-09-28 07:06] LABS: MAGNESIUM 1.9 mg/dL (1.8-2.4); PHOSPHOROUS 4.6 mg/dL (2.5-4.9)
[2024-09-28 07:12] LABS: TSH 82.3 uIU/mL (0.358-3.74)
[2024-09-28 07:52] VITALS: BP 146/56; O2SAT 100
[2024-09-28] MEDS ORDERED: IPRATROPIUM BROMIDE 0.5 MG/2.5 ML AMPUL.NEB IH ONE (08:07)
[2024-09-28] MEDS ORDERED: FAMOTIDINE/PF 20 MG in 0.9 % SODIUM CHLORIDE 8 ML IV PUSH SCH (09:00)
[2024-09-28] MEDS ORDERED: ATORVASTATIN CALCIUM 40 MG TABLET PO SCH (09:00)
[2024-09-28 16:07] VITALS: O2SAT 98
[2024-09-28 17:32] VITALS: BP 140/51
[2024-09-28 19:50] VITALS: O2SAT 100
[2024-09-28 22:42] VITALS: BP 126/55
[2024-09-29] VITALS (7 sets, daily range): BP systolic 140–174; BP diastolic 61–67; O2SAT 92–100
[2024-09-29 04:58] LABS: HEMATOCRIT 28.4 % (36.0-45.00); HEMOGLOBIN 9.5 g/dL (12.0-15.00); MEAN CELL VOLUME 87.9 fL (80.00-100.00); MEAN CORPUSCULAR HEMOGLOBIN 29.4 pg (27.00-32.0); MEAN CORPUSCULAR HGB CONC 33.4 g/dl (32.0-36.0); PLATELET COUNT 567 K/uL (150-450); RED BLOOD COUNT 3.23 M/uL (4.00-6.00); RED CELL DISTRIBUTION WIDTH 21.4 % (11.5-14.5)
[2024-09-29] MEDS ORDERED: hydrALAZINE HCL 25 MG TABLET PO SCH (05:00)
[2024-09-29 05:12] LABS: CREATININE SERUM 2.75 mg/dL (0.55-1.02); GFR 16.36; POTASSIUM 5.45 mEq/L (3.5-5.1)
[2024-09-29] MEDS ORDERED: ENOXAPARIN SODIUM 30 MG/0.3 ML SYRINGE SUBCUTANEO SCH (09:00)
[2024-09-29] MEDS ORDERED: LOSARTAN POTASSIUM 50 MG TABLET PO SCH (09:00)
[2024-09-30] VITALS (8 sets, daily range): BP systolic 140–170; BP diastolic 59–69; O2SAT 96–100
[2024-09-30] MEDS ORDERED: GUAIFENESIN 200 MG/10 ML BLIST.PACK PO SCH (17:00)
[2024-10-01] VITALS (7 sets, daily range): BP systolic 160–187; BP diastolic 66–99; O2SAT 95–100
[2024-10-01] MEDS ORDERED: IPRATROPIUM BROMIDE 0.5 MG/2.5 ML AMPUL.NEB IH SCH (13:00)
[2024-10-01] MEDS ORDERED: FUROsemide 20 MG/2 ML VIAL IV ONE (23:00)
[2024-10-02] VITALS (9 sets, daily range): BP systolic 119–166; BP diastolic 70–94; O2SAT 90–100
[2024-10-02 07:12] LABS: ALBUMIN 2.8 gm/dL (3.4-5.0); BILIRUBIN TOTAL 0.63 mg/dL (0.3-1.2); CALCIUM 8.7 mg/dL (8.5-10.1); CREATININE SERUM 2.54 mg/dL (0.55-1.02); GFR 17.93; GLOBULINA 3.1 G/DL (2.4-3.5); POTASSIUM 4.86 mEq/L (3.5-5.1); TOTAL PROTEIN 5.9 gm/dL (6.4-8.2)
[2024-10-02] MEDS ORDERED: FUROsemide 20 MG/2 ML VIAL IV SCH (09:00)
[2024-10-02 10:58] LABS: ABG PO2 91.2 mmHg (80-100); ABG pCO2 55.7 mmHg (35-45); BASE EXCESS 7.9 mmol/l; BICARBONATE 34.5 mmol/l (23-25); SaO2 97.3 %; Tco2 36.2 mmol/l; allen test SATISFACTORY; o2 50 %; puncture site RADIAL RIGHT
[2024-10-02] MEDS ORDERED: hydrALAZINE HCL 50 MG TABLET PO SCH (13:00)
[2024-10-03] VITALS (10 sets, daily range): BP systolic 132–153; BP diastolic 67–70; O2SAT 92–100
[2024-10-03 07:01] LABS: CALCIUM 8.4 mg/dL (8.5-10.1); CREATININE SERUM 2.87 mg/dL (0.55-1.02); GFR 15.57; POTASSIUM 5.09 mEq/L (3.5-5.1)
[2024-10-03 13:36] LABS: ABG PH 7.435 (7.35-7.45); ABG PO2 73.7 mmHg (80-100); ABG pCO2 53.2 mmHg (35-45); BASE EXCESS 8.8 mmol/l; BICARBONATE 34.9 mmol/l (23-25); SaO2 95.5 %; Tco2 36.5 mmol/l
[2024-10-03 13:39] LABS: allen test SATISFACTORY; o2 21 %; puncture site RADIAL RIGHT
[2024-10-03] MEDS ORDERED: VITAMIN B COMPLEX/LYSINE 15 ML BLIST.PACK PO NR (18:45)
[2024-10-04] VITALS (10 sets, daily range): BP systolic 132–201; BP diastolic 60–92; O2SAT 90–98
[2024-10-04] MEDS ORDERED: CARVEDILOL 12.5 MG TABLET PO SCH (09:00)
[2024-10-04] MEDS ORDERED: FAMOtidine 20 MG TABLET PO SCH (09:00)
[2024-10-04] MEDS ORDERED: VITAMIN B COMPLEX/LYSINE 15 ML BLIST.PACK PO SCH (09:00)
[2024-10-04] MEDS ORDERED: FUROsemide 20 MG/2 ML VIAL IV SCH ×2 (09:00→21:00)
[2024-10-04] MEDS ORDERED: METOPROLOL TARTRATE 5MG/5ML AMPUL IV NR (09:30)
[2024-10-04] MEDS ORDERED: hydrALAZINE HCL 50 MG TABLET PO SCH (13:00)
[2024-10-04] MEDS ORDERED: HYDROCHLOROTHIAZIDE 25 MG TABLET PO SCH (15:00)
[2024-10-04] MEDS ORDERED: ENALAPRILAT DIHYDRATE 1.25 MG/ML VIAL IV NR (15:00)
[2024-10-04] MEDS ORDERED: DOXAZOSIN MESYLATE 2 MG TABLET PO SCH (21:00)
[2024-10-05] VITALS (9 sets, daily range): BP systolic 112–130; BP diastolic 54–63; O2SAT 90–100
[2024-10-05 04:53] LABS: MEAN CELL VOLUME 89.8 fL (80.00-100.00); PLATELET COUNT 382 K/uL (150-450); RED BLOOD COUNT 3.23 M/uL (4.00-6.00); RED CELL DISTRIBUTION WIDTH 21.1 % (11.5-14.5)
[2024-10-05 04:54] LABS: HEMOGLOBIN 9.6 g/dL (12.0-15.00); MEAN CORPUSCULAR HEMOGLOBIN 29.7 pg (27.00-32.0)
[2024-10-05] MEDS ORDERED: LOSARTAN POTASSIUM 50 MG TABLET PO SCH (09:00)
[2024-10-05] MEDS ORDERED: FUROsemide 20 MG/2 ML VIAL IV SCH (09:00)
[2024-10-05] MEDS ORDERED: CEFTRIAXONE SODIUM 1,000 MG in 0.9 % SODIUM CHLORIDE 100 ML IV SCH (09:00)
[2024-10-05 21:33] LABS: CALCIUM 8.2 mg/dL (8.5-10.1); CREATININE SERUM 3.18 mg/dL (0.55-1.02); GFR 13.83; POTASSIUM 4.84 mEq/L (3.5-5.1)
[2024-10-06] VITALS (8 sets, daily range): BP systolic 130–152; BP diastolic 61–83; O2SAT 90–100
[2024-10-06 05:29] LABS: HEMATOCRIT 27.6 % (36.0-45.00); MEAN CELL VOLUME 89.8 fL (80.00-100.00); MEAN CORPUSCULAR HGB CONC 32.7 g/dl (32.0-36.0); PLATELET COUNT 530 K/uL (150-450); RED BLOOD COUNT 3.07 M/uL (4.00-6.00); RED CELL DISTRIBUTION WIDTH 21.1 % (11.5-14.5)
[2024-10-06 05:37] LABS: MEAN CORPUSCULAR HEMOGLOBIN 29.3 pg (27.00-32.0)
[2024-10-06] MEDS ORDERED: METHYLPREDNISOLONE SOD SUCC 125 MG VIAL IV STA (12:47)
[2024-10-06] MEDS ORDERED: METHYLPREDNISOLONE SOD SUCC 40 MG VIAL IV SCH ×2 (13:00→21:00)
[2024-10-06] MEDS ORDERED: BUDESONIDE 0.5 MG/2 ML AMPUL.NEB IH NR (14:00)
[2024-10-06] MEDS ORDERED: EPOETIN ALFA-EPBX 10,000 UNIT/ML VIAL (Retacrit) SUBCUTANEO NR (18:00)
[2024-10-06] MEDS ORDERED: BUDESONIDE 0.5 MG/2 ML AMPUL.NEB IH SCH (21:00)
[2024-10-07] VITALS (9 sets, daily range): BP systolic 176–177; BP diastolic 77–83; O2SAT 90–100
[2024-10-07] MEDS ORDERED: CEFTRIAXONE SODIUM 1,000 MG VIAL ONE (08:19)
[2024-10-08] VITALS (9 sets, daily range): BP systolic 173–189; BP diastolic 69–94; O2SAT 89–100
[2024-10-08] MEDS ORDERED: hydrALAZINE HCL 20 MG VIAL IV PRN (06:30)
[2024-10-08] MEDS ORDERED: CEFTRIAXONE SODIUM 1,000 MG VIAL ONE (07:36)
[2024-10-08] MEDS ORDERED: METHYLPREDNISOLONE SOD SUCC 40 MG VIAL IV SCH (13:00)
[2024-10-08] MEDS ORDERED: HALOPERIDOL LACTATE 5 MG/ML AMPUL ONE (13:49)
[2024-10-08] MEDS ORDERED: HALOPERIDOL LACTATE 5 MG/ML AMPUL IV PRN (14:00)
[2024-10-08] MEDS ORDERED: DOXAZOSIN MESYLATE 2 MG TABLET PO SCH (17:00)
[2024-10-09] VITALS (9 sets, daily range): BP systolic 172–196; BP diastolic 90–92; O2SAT 100
[2024-10-09] MEDS ORDERED: CARVEDILOL 25 MG TABLET PO SCH (09:00)
[2024-10-09] MEDS ORDERED: CARVEDILOL 12.5 MG TABLET PO SCH (09:00)
[2024-10-09 10:08] LABS: CALCIUM 8.4 mg/dL (8.5-10.1); CREATININE SERUM 2.68 mg/dL (0.55-1.02); GFR 16.85; POTASSIUM 5.63 mEq/L (3.5-5.1)
[2024-10-09] MEDS ORDERED: SODIUM POLYSTYRENE SULFONATE 15 G/4 TSP TSP PO SCH (11:32)
[2024-10-09] MEDS ORDERED: BUMETANIDE 0.5 MG TABLET PO SCH (11:35)
[2024-10-09 18:00] LABS: HEMATOCRIT 33.8 % (36.0-45.00); HEMOGLOBIN 11.1 g/dL (12.0-15.00); MEAN CELL VOLUME 88.4 fL (80.00-100.00); MEAN CORPUSCULAR HGB CONC 32.8 g/dl (32.0-36.0); PLATELET COUNT 690 K/uL (150-450); RED BLOOD COUNT 3.82 M/uL (4.00-6.00)
[2024-10-09] MEDS ORDERED: 0.9 % SODIUM CHLORIDE 1,000 ML IV SCH (19:30)
[2024-10-10] VITALS (7 sets, daily range): BP systolic 155–197; BP diastolic 62–91; O2SAT 97–100
[2024-10-10] MEDS ORDERED: NIFEDIPINE 30 MG TAB.SA.OSM PO NR (06:30)
[2024-10-10 07:41] LABS: CALCIUM 8.4 mg/dL (8.5-10.1); CREATININE SERUM 2.51 mg/dL (0.55-1.02); GFR 18.18; POTASSIUM 5.23 mEq/L (3.5-5.1)
[2024-10-11] MEDS ORDERED: NIFEDIPINE 30 MG TAB.SA.OSM PO SCH (09:00)
== END 2024-10-10 16:28 | disposition home or self-care (01) | DRG 291 ==
LOC: ER 10:30 → ICU-2 20:27 → MEDI 09-28 13:26
PROVIDERS: General Practice; Internal Medicine Nephrology; ADMIT Student in an Organized Health Care Education/Training Program; ATTEND Student in an Organized Health Care Education/Training Program
PROC: BB24ZZZ Computerized Tomography (CT Scan) of Bilateral Lungs (ICD-10-PCS; principal; 2024-09-27)
PROC: B246ZZZ Ultrasonography of Right and Left Heart (ICD-10-PCS; 2024-09-27)
PROC: 3E0F7GC Introduction of Other Therapeutic Substance into Respiratory Tract, Via Natural or Artificial Opening (ICD-10-PCS; 2024-09-27)
PROC: 5A0945A Assistance with Respiratory Ventilation, 24-96 Consecutive Hours, High Flow/Velocity Cannula (ICD-10-PCS; 2024-09-27)
PROC: 4A12X45 Monitoring of Cardiac Electrical Activity, Ambulatory, External Approach (ICD-10-PCS; 2024-09-28)
PROC: B020ZZZ Computerized Tomography (CT Scan) of Brain (ICD-10-PCS; 2024-09-29)
PROC: 02HV33Z Insertion of Infusion Device into Superior Vena Cava, Percutaneous Approach (ICD-10-PCS; 2024-10-06)
DX: I50.82 Biventricular heart failure (principal); J96.01 Acute respiratory failure with hypoxia; D47.1 Chronic myeloproliferative disease; G93.40 Encephalopathy, unspecified; I13.0 Hypertensive heart and chronic kidney disease with heart failure and stage 1 through stage 4 chronic kidney disease, or unspecified chronic kidney disease; N17.9 Acute kidney failure, unspecified; J91.8 Pleural effusion in other conditions classified elsewhere; E87.70 Fluid overload, unspecified; I27.20 Pulmonary hypertension, unspecified; N18.9 Chronic kidney disease, unspecified; E78.5 Hyperlipidemia, unspecified; E03.9 Hypothyroidism, unspecified; R54 Age-related physical debility; R41.0 Disorientation, unspecified; Z66 Do not resuscitate; R60.0 Localized edema; Z53.1 Procedure and treatment not carried out because of patient's decision for reasons of belief and group pressure

== ENCOUNTER 2025-07-13 09:56 | Inpatient (IN) | payer OTHER ==
[~2025-07-13] VITALS: Ht 152.4 cm; Wt 56.7 kg
[2025-07-13] MEDS ORDERED: METHYLPREDNISOLONE SOD SUCC 40 MG VIAL IV SCH (11:12)
[2025-07-13] MEDS ORDERED: LEVALBUTEROL HCL 0.63 MG/3 ML SOLUTION IH SCH (11:15)
[2025-07-13] MEDS ORDERED: METHYLPREDNISOLONE SOD SUCC 40 MG VIAL ONE (12:03)
--- NOTE | 2025-07-13 12:30 | NUR ---
SE RECIBE PACIENTE ALERTA Y ORIENTADA X3 ACOMPANADA POR FAMILIAR. SE ORIENTA ACERCA DE LAS INTERVENCIONES A REALIZARSE. PACIENTE REFIERE ENTENDER. SE REALIZA ARIE DE MUESTRA BAJO MEDIDAS ASEPTICAS. SE REALIZA EKG Y SE REALIZA CONSULTA CON DRA. VANEGAS.
[2025-07-13 13:40] LABS: BASO % 0.1 % (0.1-1.2); EOS # 0.00 (0.04-0.54); EOS % 0.0 % (0.7-7.0); LYMPH # 0.98 (1.18-3.74); LYMPH % 4.6 % (19.3-53.1); MEAN PLATELET VOLUME 10.60 fl (9.4-12.4); MONO # 3.41 (0.24-0.82); NEUT # 16.86 (1.56-6.13); NEUT % 78.3 % (34.0-71.1); RED CELL DISTRIBUTION WIDTH 15.5 % (11.6-14.4)
[2025-07-13 14:00] LABS: INR 1.25
[2025-07-13 14:01] LABS: COVID-19 AG NEGATIVE (NEGATIVE)
[2025-07-13 14:08] LABS: ALT/SGPT 35.0 U/L (12-78); AST/SGOT 26.0 U/L (15-37); BILIRUBIN TOTAL 0.24 mg/dL (0.3-1.2); BUN CREA RATIO 34.0 (7.0-25.0); CREATININE SERUM 2.07 mg/dL (0.55-1.02); GFR 22.7; GLOBULINA 4.2 G/DL (2.4-3.5); GLUCOSE FASTING 86.0 mg/dL (65-100); OSMOLALITY SERUM 301.0 MOSM/KG (275-295)
[2025-07-13 14:29] LABS: BAND MAN 5.0 %; MONO % 15.9 % (4.7-12.5); MONOCYTE MAN 17.0 %; NEUTROPHILS MAN 71.0 %
[2025-07-13] MEDS ORDERED: PIPERACILLIN/TAZOBACTAM SODIUM 2.25 GM in DEXTROSE 5 % IN WATER 50 ML IV SCH (14:58)
[2025-07-13] MEDS ORDERED: ENOXAPARIN SODIUM 30 MG/0.3 ML SYRINGE SUBCUTANEO SCH (15:24)
[2025-07-13] MEDS ORDERED: METOPROLOL SUCCINATE 50 MG TAB.SR.24H PO SCH (15:26)
[2025-07-13] MEDS ORDERED: 0.9 % SODIUM CHLORIDE 1,000 ML IV SCH (15:30)
[2025-07-13] MEDS ORDERED: ACETAMINOPHEN 500 MG GEL..CAP PO PRN (15:30)
[2025-07-13] MEDS ORDERED: LEVALBUTEROL HCL 1.25 MG/3 ML SOLUTION IH SCH (17:00)
[2025-07-13] MEDS ORDERED: IPRATROPIUM BROMIDE 0.5 MG/2.5 ML AMPUL.NEB IH SCH ×2 (17:00)
[2025-07-14 00:26] VITALS: BP 190/63; O2SAT 98
[2025-07-14] MEDS ORDERED: LEVOTHYROXINE SODIUM 112 MCG TABLET PO SCH (06:00)
[2025-07-14 08:00] VITALS: BP 190/65; O2SAT 97
[2025-07-14] MEDS ORDERED: hydrALAZINE HCL 20 MG VIAL IV PRN (08:30)
[2025-07-14] MEDS ORDERED: ATORVASTATIN CALCIUM 20 MG TABLET PO SCH (09:00)
[2025-07-14] MEDS ORDERED: ONDANSETRON HCL 2 MG/ML VIAL IV PRN (11:15)
[2025-07-14 15:54] VITALS: BP 176/54; O2SAT 100
[2025-07-14] MEDS ORDERED: METHYLPREDNISOLONE SOD SUCC 40 MG VIAL IV SCH (21:00)
[2025-07-14] MEDS ORDERED: IPRATROPIUM/ALBUTEROL SULFATE 3 ML AMPUL.NEB IH SCH (21:00)
[2025-07-14 23:59] VITALS: BP 200/60; O2SAT 100
[2025-07-15] MEDS ORDERED: AZITHROMYCIN 500 MG VIAL IV SCH (00:56)
[2025-07-15 02:11] VITALS: BP 197/73; O2SAT 95
[2025-07-15] MEDS ORDERED: NIFEDIPINE 30 MG TAB.SA.OSM PO STA (07:43)
[2025-07-15 08:30] VITALS: BP 204/65; O2SAT 99
[2025-07-15] MEDS ORDERED: CEFTRIAXONE SODIUM 2,000 MG in 0.9 % SODIUM CHLORIDE 100 ML IV SCH (09:00)
[2025-07-15] MEDS ORDERED: NIFEDIPINE 30 MG TAB.SA.OSM PO SCH (09:00)
[2025-07-15 09:44] VITALS: BP 125/66; O2SAT 100
[2025-07-15 11:36] LABS: BASO % 0.2 % (0.1-1.2); EOS # 0.00 (0.04-0.54); EOS % 0.0 % (0.7-7.0); LYMPH # 0.91 (1.18-3.74); LYMPH % 4.2 % (19.3-53.1); MEAN PLATELET VOLUME 11.50 fl (9.4-12.4); MONO # 1.36 (0.24-0.82); MONO % 6.3 % (4.7-12.5); NEUT # 18.77 (1.56-6.13); NEUT % 87.1 % (34.0-71.1); RED CELL DISTRIBUTION WIDTH 15.5 % (11.6-14.4)
[2025-07-15 12:02] LABS: BUN CREA RATIO 31.0 (7.0-25.0); CREATININE SERUM 2.09 mg/dL (0.55-1.02); GFR 22.45; GLUCOSE FASTING 188.0 mg/dL (65-100); OSMOLALITY SERUM 309.0 MOSM/KG (275-295)
[2025-07-15] MEDS ORDERED: AZITHROMYCIN 500 MG VIAL IV ONE (16:37)
[2025-07-15 17:00] VITALS: BP 215/65; O2SAT 100
[2025-07-15 21:30] VITALS: BP 128/60
[2025-07-16 01:16] LABS: URINE APPEARANCE Clear; URINE BILIRRUBIN Negative (NEGATIVE); URINE BLOOD Negative; URINE COLOR Yellow; URINE GLUCOSE Negative (NEGATIVE); URINE KETONE Negative (NEGATIVE); URINE LEUKOCYTE Negative; URINE NITRATE Negative; URINE UROBILINOGEN 0.2 E.U./dl
[2025-07-16 01:20] LABS: URINE BACTERIA 27.5 uL (0.0-1933); URINE EPITHELIAL CELLS 12.9 uL (0.0-38.8); URINE WBC 3.2 uL (0.0-23.2)
[2025-07-16 01:30] VITALS: BP 133/55; O2SAT 99
[2025-07-16 01:53] LABS: URINE CAST 0.87 uL (0.0-1.40); URINE PROTEIN 300 (NEGATIVE); URINE RBC 0.4 uL (0.0-20.8)
[2025-07-16 07:16] LABS: ALT/SGPT 30.0 U/L (12-78); AST/SGOT 33.0 U/L (15-37); BILIRUBIN TOTAL 0.13 mg/dL (0.3-1.2); BUN CREA RATIO 32.0 (7.0-25.0); CREATININE SERUM 1.91 mg/dL (0.55-1.02); GFR 24.91; GLOBULINA 3.5 G/DL (2.4-3.5); GLUCOSE FASTING 122.0 mg/dL (65-100); OSMOLALITY SERUM 309.0 MOSM/KG (275-295)
[2025-07-16 09:31] VITALS: BP 182/68; O2SAT 99
[2025-07-16 14:03] LABS: BASO % 0.2 % (0.1-1.2); EOS # 0.00 (0.04-0.54); EOS % 0.0 % (0.7-7.0); LYMPH # 0.47 (1.18-3.74); LYMPH % 2.2 % (19.3-53.1); MEAN PLATELET VOLUME 12.40 fl (9.4-12.4); MONO # 1.64 (0.24-0.82); MONO % 7.8 % (4.7-12.5); NEUT # 17.76 (1.56-6.13); NEUT % 84.3 % (34.0-71.1); RED CELL DISTRIBUTION WIDTH 15.6 % (11.6-14.4)
[2025-07-16 14:33] LABS: BAND MAN 6.0 %; LYMPHOCYTE MAN 1.0 %; METAMYELOCYTE 2.0 %; MONOCYTE MAN 5.0 %; NEUTROPHILS MAN 86.0 %
[2025-07-16] MEDS ORDERED: AZITHROMYCIN 500 MG VIAL IV ONE (15:27)
[2025-07-16 16:34] VITALS: BP 160/66; O2SAT 100
[2025-07-16 21:09] VITALS: BP 156/63
[2025-07-16 21:25] LABS: CREATININE URINE RANDOM 56.1 MG/DL (30-125)
[2025-07-16 21:40] LABS: NA URINE RANDOM 71.0 mmol/L (20-110)
[2025-07-17 01:35] VITALS: BP 183/78; O2SAT 99
[2025-07-17 08:27] VITALS: BP 205/66; O2SAT 100
[2025-07-17] MEDS ORDERED: NIFEDIPINE 30 MG TAB.SA.OSM PO SCH (09:00)
[2025-07-17] MEDS ORDERED: ENALAPRILAT DIHYDRATE 1.25 MG/ML VIAL IV SCH (10:14)
[2025-07-17] MEDS ORDERED: AZITHROMYCIN 500 MG VIAL IV ONE (15:40)
[2025-07-17 20:06] VITALS: BP 120/63; O2SAT 97
[2025-07-17 20:54] VITALS: BP 145/64
[2025-07-18 02:41] VITALS: BP 174/80; O2SAT 100
[2025-07-18 08:46] VITALS: BP 135/72; O2SAT 98
[2025-07-18] MEDS ORDERED: EPOETIN ALFA-EPBX 10,000 UNIT/ML VIAL (Retacrit) SUBCUTANEO SCH (09:00)
[2025-07-18 10:39] LABS: BASO % 0.9 % (0.1-1.2); EOS # 0.01 (0.04-0.54); EOS % 0.1 % (0.7-7.0); LYMPH # 1.01 (1.18-3.74); LYMPH % 9.9 % (19.3-53.1); MEAN PLATELET VOLUME 11.50 fl (9.4-12.4); MONO # 1.57 (0.24-0.82); NEUT # 6.72 (1.56-6.13); NEUT % 65.6 % (34.0-71.1); RED CELL DISTRIBUTION WIDTH 15.8 % (11.6-14.4)
[2025-07-18 12:00] LABS: BAND MAN 10.0 %; LYMPHOCYTE MAN 3.0 %; MONO % 15.3 % (4.7-12.5); MONOCYTE MAN 15.0 %; NEUTROPHILS MAN 61.0 %
[2025-07-18] MEDS ORDERED: AZITHROMYCIN 500 MG VIAL IV ONE (15:41)
[2025-07-18 17:20] VITALS: BP 147/67
[2025-07-19 00:34] VITALS: BP 178/70; O2SAT 100
[2025-07-19] MEDS ORDERED: hydrALAZINE HCL 20 MG VIAL IV NR (07:00)
[2025-07-19 08:43] VITALS: BP 138/74; O2SAT 99
[2025-07-19] MEDS ORDERED: AZITHROMYCIN 500 MG VIAL IV ONE (15:51)
[2025-07-19 16:28] VITALS: BP 140/66
[2025-07-20 02:24] VITALS: BP 170/70; O2SAT 99
[2025-07-20 08:18] VITALS: BP 153/64; O2SAT 100
== END 2025-07-20 12:21 | disposition home or self-care (01) | DRG 178 ==
LOC: ER 09:57 → SURH 18:06 → SEC-K 18:06 → SURH 20:24 → SURG 07-15 08:16 → MEDI 07-15 08:21
PROVIDERS: Internal Medicine Infectious Disease; Internal Medicine Nephrology; Physician Assistant Medical; ADMIT Internal Medicine; ATTEND Internal Medicine
PROC: BB24ZZZ Computerized Tomography (CT Scan) of Bilateral Lungs (ICD-10-PCS; principal; 2025-07-13)
PROC: 05HV33Z Insertion of Infusion Device into Left Face Vein, Percutaneous Approach (ICD-10-PCS; 2025-07-14)
PROC: 3E0F7GC Introduction of Other Therapeutic Substance into Respiratory Tract, Via Natural or Artificial Opening (ICD-10-PCS; 2025-07-14)
DX: J69.0 Pneumonitis due to inhalation of food and vomit (principal); J90 Pleural effusion, not elsewhere classified; N17.8 Other acute kidney failure; I10 Essential (primary) hypertension; E11.9 Type 2 diabetes mellitus without complications; Z79.4 Long term (current) use of insulin; E78.49 Other hyperlipidemia